=== PATIENT | female | born 1995 | race Two or more races ===

== ENCOUNTER 2024-04-05 08:47 | Outpatient (CLI) | payer MEDICAID, SELFPAY ==
[2024-04-05] VITALS (12 sets, daily range): BP systolic 122–169; BP diastolic 72–116; PULSE 62–79; RESP 15–20; TEMP 36.5–36.9; O2SAT 96–100
--- NOTE | 2024-04-05 09:30 | XR_ITS ---
Examination: CT-guided biopsy aspiration soft tissue supraclavicular left neck mass CT soft tissue neck without contrast 2-D coronal reconstructions. 2-D sagittal reconstructions. Date and time of exam :Palpable masses in the neck on the left side this month, preop biopsy today. CTDI: vol (mGy):48.4 DLP: (mGycm):11 Technique: 1.25 mm axial sections of the neck of the obtained. Coronal and sagittal reconstructions have been obtained. Low dose protocols were performed. One or more of the following dose reduction techniques were used; automated exposure control, adjustment of the mA and/or KV according to patient size, use of iterative reconstruction technique. Findings: Utilizing CT fluoroscopic guidance hypodense mass lateral to the left thyroid lobe localized After obtaining anesthesia with 1% lidocaine 18-gauge needle was used to aspirate this mass, 10 cc aspirated fluid placed in preservative for cytologic analysis IMPRESSION: Successful CT-guided biopsy for sign aspiration soft tissue left supraclavicular neck mass The patient also has a left carotid triangle lymph node mass which is amenable to CT-guided biopsy as clinically warranted
--- NOTE | 2024-04-05 09:30 | XR_ITS ---
Examination: CT soft tissue neck, with intravenous contrast. 2-D coronal reconstructions. 2-D sagittal reconstructions. Date and time of exam :April 05, 2024 at 1052 hours INDICATIONS: Palpable mass in the lower neck this month. CTDI: vol (mGy):13.1 DLP: (mGycm):349 Technique: 1.25 mm axial sections of the neck of the obtained. Coronal and sagittal reconstructions have been obtained. Intravenous contrast administered 50 cc Isovue-370. Low dose protocols were performed. One or more of the following dose reduction techniques were used; automated exposure control, adjustment of the mA and/or KV according to patient size, use of iterative reconstruction technique. Findings: 30 mm left carotid triangle lymph node with enhancing central nidus, 17 mm Low density lesion more caudad medial to the sternocleidomastoid axial image 47, measuring 18 mm Larger low-density mass lateral to the left thyroid lobe, 4.6 cm IMPRESSION: 30 mm left carotid triangle lymph node with enhancing central nidus Additional low-density masses in the neck as above
[2024-04-05 09:51] LABS: Basophils # (Auto) 0.1 Thou/mm3 (0.0-0.2); Basophils % (Auto) 1 % (0-2.5); Eosinophils # (Auto) 0.1 Thou/mm3 (0.0-0.5); Eosinophils % (Auto) 1 % (0-10); Hemoglobin 13.2 g/dL (12.0-16.0); Immature Granulocytes % (Auto) 1 % (0-0); Immature Granulocytes Auto 0.07 Thou/mm3 (0.00-0.00); Lymphocytes # (Auto) 2.2 Thou/mm3 (1.0-4.8); Lymphocytes % (Auto) 25 % (10-50); Mean Corpuscular Hemoglobin 27.3 pg (25.0-35.0); Mean Corpuscular Volume 83 fL (80-100); Monocytes # (Auto) 0.6 Thou/mm3 (0.0-0.8); Monocytes % (Auto) 7 % (0-12); Neutrophils # (Auto) 5.9 Thou/mm3 (1.8-7.7); Neutrophils % (Auto) 66 % (37-80); Nucleated Red Blood Cell % 0 /100 WBC (0); Platelet Count 226 Thou/mm3 (140-440); RDW Standard Deviation 43.8 fL (36.4-46.3); Red Blood Count 4.83 Miln/mm3 (4.00-5.20)
[2024-04-05 09:55] LABS: HCG,Qualitative Serum Negative
[2024-04-05 10:01] LABS: Partial Thromboplastin Time 27.1 Seconds (22.0-36.0); Prothrombin Time 10.7 Seconds (9.0-12.2)
[2024-04-05 10:15] LABS: Blood Urea Nitrogen 7 mg/dL (9-23); Creatine Kinase 108 U/L (34-171)
[2024-04-05] MEDS: fentaNYL CIT INJ 50 mCg/ML AMP 2ML 100 MCG IVP (12:27)
[2024-04-05] MEDS: SODIUM CHLORIDE 0.9% 500 ML 500 ML 20 ML IV (12:36)
--- NOTE | 2024-04-05 13:17 | PC.NURSE ---
DOCTOR RAINA NOTIFIED OF DIASTOLIC BP 109MMHG AND REPEAT 117MMHG. PER DOCTOR GIVE HOME BP MED AND MONITOR IF BP DOES NOT DROP CALL HIM BACK TO POSSIBLY SEND PATIENT TO ED.
[2024-04-05] MEDS: Lisinopril 2.5 MG TABLET 10 MG PO (13:34)
--- NOTE | 2024-04-05 14:35 | PC.NURSE ---
1251 patient is awake, alert, breathing unlabored,dressing to left neck dry with no bleeding, band aid and tegaderm present to right neck. Report received from Jesus LOPEZ, patient to recover for 1hr. Blood pressure elevated, will monitor patient. 1314 Dr. Orellana notified of elevated BP, new order received for lisinopril since she takes lisinopril at home, pt states she did not take lisinopril medication this morning. IF BP not controlled, will send patient to ER Per MD. 1334 lisinoprol 10mg given PO 1415 patient awake, alert, breathing unlabored, dressing dry with no bleeding, blood pressure within normal limits, ok to discharge patient home, discharge instructions given to patient and family member, patient discharged home in wheelchair with all belongings.
== END 2024-04-05 14:15 | disposition home or self-care (01) ==
PROVIDERS: Radiology Diagnostic Radiology; PCP Nurse Practitioner; Referring Provider Nurse Practitioner; Visit Provider Nurse Practitioner
DX: R22.1 Localized swelling, mass and lump, neck (principal)
CPT/HCPCS: 10009; 36415; 70491; 77012; 82550; 84520; 84703; 85025; 85610; 85730; A4649; J3010; J7040; Q9967; A9270